=== PATIENT | female | born 1955 | race Caucasian/White ===

== ENCOUNTER 2021-02-01 05:46 | Inpatient (IN) | payer OTHER ==
[2021-01-25 11:54] VITALS: BMI 38.7
[2021-02-01] MEDS ORDERED: SODIUM CHLORIDE 0.9% P/F 10 ML VIAL IJ ONE (06:31)
[2021-02-01] MEDS ORDERED: BUPIVACAINE HCL/PF 0.5% (5MG/ML) 10 ML VIAL ONE (06:31)
[2021-02-01] MEDS ORDERED: MIDAZOLAM HCL 2 MG/2 ML SINGLE DOSE VIAL ONE (06:31)
[2021-02-01] MEDS ORDERED: BUPIVACAINE LIPOSOME/PF (EXPAREL) 266 MG/20 ML VIAL ONE (06:31)
[2021-02-01] MEDS ORDERED: TRANEXAMIC ACID 1000 MG/10 ML VIAL IVPUSH ONE (06:34)
[2021-02-01] MEDS ORDERED: CELECOXIB 200 MG CAPSULE PO ONE (06:34)
[2021-02-01] MEDS ORDERED: CEFAZOLIN 3 GM in DEXTROSE 5%-WATER - 100 ML IVPB ONE (06:34)
[2021-02-01] MEDS ORDERED: PROPOFOL 20 ML ONE ×3 (07:04)
[2021-02-01] MEDS ORDERED: ceFAZolin SODIUM 1 GM VIAL ONE (07:08)
[2021-02-01] MEDS ORDERED: VANCOMYCIN 1,000 MG VIAL (RESTRICTED TO ID ONLY) ONE (07:08)
[2021-02-01] MEDS ORDERED: MAG HYDROX/AL HYDROX/SIMETH 30 ML UNIT-DOSE CUP PO PRN (07:55)
[2021-02-01] MEDS ORDERED: MAGNESIUM HYDROX 2400MG/30ML ORAL SUSPENSION 30 ML CUP PO PRN (07:55)
[2021-02-01] MEDS ORDERED: PATIENT'S OWN MEDICATION (NON-FORMULARY) (Esomeprazole Magnesium [Nexium 24hr] 20 MG Table PO PRN (07:55)
[2021-02-01] MEDS ORDERED: LACTATED RINGERS SOLUTION 1,000 ML IV SCH (08:00)
[2021-02-01] MEDS ORDERED: BUPIVACAINE HCL 50 ML ONE (08:16)
[2021-02-01] MEDS ORDERED: TRANEXAMIC ACID 1000 MG/10 ML VIAL ONE (09:17)
[2021-02-01] MEDS ORDERED: ePHEDrine SULFATE 50 MG/1 ML AMPULE ONE (09:39)
[2021-02-01] MEDS ORDERED: ONDANSETRON 4 MG/2 ML VIAL ONE (10:28)
[2021-02-01] MEDS: ONDANSETRON 4 MG/2 ML VIAL IVPUSH PRN ×2 (10:30→18:26)
[2021-02-01] MEDS ORDERED: ONDANSETRON 4 MG/2 ML VIAL IVPUSH PRN (10:36)
[2021-02-01] MEDS ORDERED: oxyCODONE HCL 5 MG TABLET PO PRN (10:36)
[2021-02-01] MEDS: ACETAMINOPHEN 1000 MG/100 ML VIAL (NON FORMULARY) IVPB ONE ×2 (11:00→20:25)
[2021-02-01] MEDS ORDERED: ACETAMINOPHEN INJECTION 100 ML IVPB ONE (11:10)
[2021-02-01] MEDS: LACTATED RINGERS SOLUTION 1,000 ML IV SCH (13:00)
[2021-02-01] MEDS: oxyCODONE HCL 5 MG TABLET PO PRN ×2 (15:28→21:25)
[2021-02-01] MEDS ORDERED: REFRIGERATED ANITBIOTICS ONE ×2 (16:31→23:21)
[2021-02-01] MEDS: CEFAZOLIN 3 GM in DEXTROSE 5%-WATER - 100 ML IVPB SCH ×2 (16:37→23:25)
[2021-02-01] MEDS: SENNOSIDES/DOCUSATE COMBO (SENNA PLUS) TABLET (UD) PO SCH ×2 (20:23→21:24)
[2021-02-01] MEDS: PANTOPRAZOLE 40 MG TABLET PO SCH (20:23)
[2021-02-01] MEDS: MULTIVITAMINS (DAILY MVI) TABLET (FP) PO SCH (20:24)
[2021-02-01] MEDS: metoPROLOL SUCCINATE 25 MG TAB.SR.24H (FP) PO SCH (21:24)
[2021-02-02] MEDS: ONDANSETRON 4 MG/2 ML VIAL IVPB PRN ×3 (02:11→17:50)
[2021-02-02] MEDS: traMADol HCL 50 MG TABLET PO PRN ×2 (02:11→09:43)
[2021-02-02 08:00] LABS: HEMATOCRIT 39.4 % (32.4-45.2); HEMOGLOBIN 12.8 GM/dl (10.7-15.3); MCH 29.7 pg (25.7-33.7); MCHC 32.5 g/dl (32.0-36.0); MEAN CELL VOLUME 91.5 fl (80-96); MEAN PLT VOLUME 9.1 fl (7.5-11.1); PLATELET COUNT 232 10^3/uL (134-434); RBC 4.31 M/mm3 (3.60-5.2); RDW 13.6 % (11.6-15.6); WHITE BLOOD COUNT 7.2 K/mm3 (4.0-10.8)
[2021-02-02] MEDS: ASPIRIN 325 MG TABLET PO SCH (08:30)
[2021-02-02] MEDS: MULTIVITAMINS (DAILY MVI) TABLET (FP) PO SCH (09:42)
[2021-02-02] MEDS: SENNOSIDES/DOCUSATE COMBO (SENNA PLUS) TABLET (UD) PO SCH ×2 (09:42→21:25)
[2021-02-02] MEDS: PANTOPRAZOLE 40 MG TABLET PO SCH (09:42)
[2021-02-02] MEDS ORDERED: KETOROLAC TROMETHAMINE 30 MG/1 ML VIAL IVPUSH SCH (10:00)
[2021-02-02] MEDS: LACTATED RINGERS SOLUTION 1,000 ML IV SCH (12:03)
[2021-02-02] MEDS ORDERED: PROCHLORPERAZINE INJECTION 10 MG/2 ML VIAL IVPB PRN (13:55)
[2021-02-02] MEDS ORDERED: FAMOTIDINE 20 MG/50 ML IVPB 20 MG/50 ML MG IVPB ONE (13:55)
[2021-02-02] MEDS: metoPROLOL SUCCINATE 25 MG TAB.SR.24H (FP) PO SCH (21:24)
[2021-02-02] MEDS: KETOROLAC TROMETHAMINE 30 MG/1 ML VIAL IVPUSH PRN (21:30)
[2021-02-03] MEDS: ONDANSETRON 4 MG/2 ML VIAL IVPB PRN (05:13)
[2021-02-03 06:37] VITALS: BP 166/73; PULSE 78; TEMP 98.4
[2021-02-03 08:05] LABS: HEMATOCRIT 36.6 % (32.4-45.2); HEMOGLOBIN 12.1 GM/dl (10.7-15.3); MCH 29.9 pg (25.7-33.7); MEAN CELL VOLUME 90.7 fl (80-96); MEAN PLT VOLUME 8.9 fl (7.5-11.1); PLATELET COUNT 229 10^3/uL (134-434); RBC 4.03 M/mm3 (3.60-5.2); RDW 13.3 % (11.6-15.6); WHITE BLOOD COUNT 6.4 K/mm3 (4.0-10.8)
[2021-02-03 08:17] LABS: CALCIUM 8.4 mg/dl (8.5-10); CREATININE 0.9 mg/dl (0.55-1.3); TOT PROT 5.4 g/dl (6.4-8.2)
[2021-02-03] MEDS: KETOROLAC TROMETHAMINE 30 MG/1 ML VIAL IVPUSH PRN (08:55)
[2021-02-03] MEDS: ASPIRIN 325 MG TABLET PO SCH (08:56)
[2021-02-03] MEDS: SENNOSIDES/DOCUSATE COMBO (SENNA PLUS) TABLET (UD) PO SCH (10:07)
[2021-02-03] MEDS: PANTOPRAZOLE 40 MG TABLET PO SCH (10:07)
[2021-02-03] MEDS: MULTIVITAMINS (DAILY MVI) TABLET (FP) PO SCH (10:08)
== END 2021-02-03 11:30 | DRG 470 ==
LOC: FM/S 05:46
PROVIDERS: ADMIT Orthopaedic Surgery; ATTEND Orthopaedic Surgery
PROC: 8E0Y0CZ Robotic Assisted Procedure of Lower Extremity, Open Approach (ICD-10-PCS; 2021-02-01)
PROC: 0SRD0J9 Replacement of Left Knee Joint with Synthetic Substitute, Cemented, Open Approach (ICD-10-PCS; principal; 2021-02-01 08:43)
DX: M17.12 Unilateral primary osteoarthritis, left knee (principal); R11.0 Nausea
CPT/HCPCS: 36415; 73560-TC-LT-FY; 80053; 85027; 94760; 97010-GP; 97116-GP; 97163-GP; J0131